=== PATIENT | female | born 1975 | race Two or more races ===

== ENCOUNTER 2019-08-06 23:29 | Emergency (ER) | payer SELFPAY ==
[~2019-08-06] VITALS: Ht 167.6 cm; Wt 68.0 kg
[2019-08-07 01:04] LABS: INFLUENZA A PATIENT NEGATIVE (NEGATIVE); INFLUENZA B PATIENT NEGATIVE (NEGATIVE)
[2019-08-07 04:26] VITALS: BP 121/69
[2019-08-07] MEDS ORDERED: AMOX875T PO (04:56)
--- NOTE | 2019-08-07 04:56 | PHYS DOC ---
Past Medical History Past Medical History: No Pertinent History Additional Past Medical Histor: Gestational diabetes Past Surgical History: Tubal ligation Alcohol Use: None Drug Use: None Adult General Chief Complaint Chief Complaint: SORE THROAT HPI HPI 44-year-old female presents to the emergency Department complaints of sore throat, fever, GI upset ongoing for the last 2-3 days. Patient is tried [id number] medications without significant improvement. Patient denies any nausea on exam. She is currently afebrile this time. Nothing makes her symptoms worse, nothing makes her symptoms better. Review of Systems Review of Systems Constitutional: fever HENT: sore throat Respiratory: Denies cough or shortness of breath [] Cardiovascular: No additional information not addressed in HPI [] GI: Denies abdominal pain, + nausea, no vomiting, bloody stools or diarrhea [] : Dysuria Musculoskeletal: Denies back pain or joint pain [] Neurologic: Denies headache, focal weakness or sensory changes [] All other systems were reviewed and found to be within normal limits, except as documented in this note. Allergies Allergies Allergies Coded Allergies Type Severity Reaction Last Updated Verified Fish Containing Products Allergy Intermediate Nausea and Vomiting 10/09/15 Yes ranitidine Adverse Reaction Intermediate 10/09/15 Yes Physical Exam Physical Exam Constitutional: Well developed, well nourished, no acute distress, non-toxic appearance. [] HENT: Normocephalic, atraumatic, bilateral external ears normal, oropharynx moist, + exudate appreciated, erythema to posterior pharynx, nose normal. [] Eyes: PERRLA, EOMI, conjunctiva normal, no discharge. [] Neck: Normal range of motion, TTP + lymphadenopathy present, supple, no stridor. [] Cardiovascular:Heart rate regular rhythm, no murmur [] Lungs & Thorax: Bilateral breath sounds clear to auscultation [] Abdomen: Bowel sounds normal, soft, no tenderness, no masses, no pulsatile masses. [] Skin: Warm, dry, no erythema, no rash. [] Back: No tenderness, no CVA tenderness. [] Extremities: No tenderness, no edema. [] Neurologic: Alert and oriented X 3, no focal deficits noted. [] Psychologic: Affect normal, judgement normal, mood normal. [] Current Patient Data Vital Signs Vital Signs Date Time Temp Pulse Resp B/P (MAP) Pulse Ox O2 Delivery O2 Flow Rate FiO2 08/07/19 04:26 98.8 77 18 121/69 (86) 97 Room Air 98.8 Lab Values Laboratory Tests Test 08/07/19 00:23 Influenza Type A Antigen Negative (NEGATIVE) Influenza Type B Antigen Negative (NEGATIVE) EKG EKG [] Radiology/Procedures Radiology/Procedures [] Course & Med Decision Making Course & Med Decision Making Pertinent Labs and Imaging studies reviewed. (See chart for details) []44-year-old female presents to the emergency Department complaints of sore throat, fever, GI upset ongoing for the last 2-3 days. Patient is tried [id number] medications without significant improvement. Patient denies any nausea on exam. She is currently afebrile this time. Nothing makes her symptoms worse, nothing makes her symptoms better. + strep, negative influenza Abx provided upon discharge for 10 days Symptomatic treatment Return precautions provided upon discharge Discussed findings with patient and family at bedside Dragon Disclaimer Dragon Disclaimer This electronic medical record was generated, in whole or in part, using a voice recognition dictation system. Departure Departure Impression: Primary Impression: Strep pharyngitis Disposition: 01 HOME, SELF-CARE Condition: STABLE Referrals: NADYA CARBONE MD (PCP) Patient Instructions: Strep Throat, [id number] Additional Instructions: Recommend follow up with PCP 3 - 5 days Return to the ER with worsening symptoms, intractable pain, fever, altered mental status Tylenol/Motrin as needed for pain Take antibiotics as prescribed Amoxicillin 875mg BID x 10 days Scripts Amoxicillin (AMOXICILLIN) 875 Mg Tablet 1 TAB PO BID, #20 TAB Prov: MARSHA SWEENEY MD 08/07/19 MARSHA SWEENEY MD Aug 07, 2019 04:56
== END 2019-08-07 05:20 | disposition home or self-care (01) ==
LOC: ER 23:29
DX: J02.0 Streptococcal pharyngitis (principal); B95.5 Unspecified streptococcus as the cause of diseases classified elsewhere; R11.0 Nausea; R50.9 Fever, unspecified; R30.0 Dysuria; Z98.51 Tubal ligation status; Z91.013 Allergy to seafood; Z88.8 Allergy status to other drugs, medicaments and biological substances
CPT/HCPCS: 87804; 87880; 99284

== ENCOUNTER 2019-10-14 18:33 | Emergency (ER) | payer OTHER ==
[~2019-10-14] VITALS: Ht 162.6 cm; Wt 68.2 kg
[~2019-10-14 18:33] MED LIST: AMOX875T PO
[2019-10-14 20:15] VITALS: BP 183/84
[2019-10-14 21:00] LABS: INFLUENZA A PATIENT NEGATIVE (NEGATIVE); INFLUENZA B PATIENT NEGATIVE (NEGATIVE)
--- NOTE | 2019-10-14 21:24 | PHYS DOC ---
Past Medical History Past Medical History: No Pertinent History Additional Past Medical Histor: Gestational diabetes Past Surgical History: Tubal ligation Smoking Status: Never Smoker Alcohol Use: None Drug Use: None Adult General Chief Complaint Chief Complaint: FLU SYMPTOM HPI HPI Patient is a 44 year old female who presents to the ED today complaining of sore throat cough and subjective fevers, symptoms began yesterday. Patient reports the son has similar symptoms. Patient is Georgian speaking, interpretation provided by family Review of Systems Review of Systems Constitutional: Reports subjective fevers Eyes: Denies change in visual acuity, redness, or eye pain [] HENT: Reports sore throat. Denies nasal congestion Respiratory: Reports cough, denies shortness of breath [] Cardiovascular: No additional information not addressed in HPI [] GI: Denies abdominal pain, nausea, vomiting, bloody stools or diarrhea [] : Denies dysuria or hematuria [] Musculoskeletal: Denies back pain or joint pain [] Integument: Denies rash or skin lesions [] Neurologic: Denies headache, focal weakness or sensory changes [] All other systems were reviewed and found to be within normal limits, except as documented in this note. Allergies Allergies Allergies Coded Allergies Type Severity Reaction Last Updated Verified Fish Containing Products Allergy Intermediate Nausea and Vomiting 10/09/15 Yes ranitidine Adverse Reaction Intermediate 10/09/15 Yes Physical Exam Physical Exam Constitutional: Well developed, well nourished, no acute distress, non-toxic appearance. [] HENT: Normocephalic, atraumatic, bilateral external ears normal, oropharynx moist, no oral exudates, nose normal. [] Eyes: PERRLA, EOMI, conjunctiva normal, no discharge. [] Neck: Normal range of motion, no tenderness, supple, no stridor. [] Cardiovascular:Heart rate regular rhythm, no murmur [] Lungs & Thorax: Bilateral breath sounds clear to auscultation [] Abdomen: Bowel sounds normal, soft, no tenderness, no masses, no pulsatile masses. [] Skin: Warm, dry, no erythema, no rash. [] Back: No tenderness, no CVA tenderness. [] Extremities: No tenderness, no cyanosis, no clubbing, ROM intact, no edema. [] Neurologic: Alert and oriented X 3, normal motor function, normal sensory fun ction, no focal deficits noted. [] Psychologic: Affect normal, judgement normal, mood normal. [] Current Patient Data Vital Signs Vital Signs Date Time Temp Pulse Resp B/P (MAP) Pulse Ox O2 Delivery O2 Flow Rate FiO2 10/14/19 20:15 98.5 75 18 183/84 (117) 97 Room Air 98.5 Lab Values Laboratory Tests Test 10/14/19 20:27 Influenza Type A Antigen Negative (NEGATIVE) Influenza Type B Antigen Negative (NEGATIVE) EKG EKG [] Radiology/Procedures Radiology/Procedures [] Course & Med Decision Making Course & Med Decision Making Pertinent Labs and Imaging studies reviewed. (See chart for details) This is a 44-year-old female patient presenting to the ED today with sore throat, fever subjective in nature, and a cough since yesterday. Negative rapid strep, negative influenza A/B, chest x-ray interpreted by Dr. Ramos is negative. Discharge to home. F/u with PCP next week. Dragon Disclaimer Dragon Disclaimer This electronic medical record was generated, in whole or in part, using a voice recognition dictation system. Departure Departure Impression: Primary Impression: Cough Additional Impressions: Fever Acute pharyngitis Disposition: HOME, SELF-CARE Condition: STABLE Referrals: NADYA CARBONE MD (PCP) follow up in 1-2 weeks Patient Instructions: Cough, Adult, Darn-tv-[id number], Fever, Adult, Viral and Bacterial Pharyngitis Additional Instructions: You were evaluated in the emergency room for fever cough and a sore throat. Your strep test is negative, your influenza test is negative, your chest x-ray is negative. Use the prescribed medications as ordered and follow-up with your own doctor in 1 to 2 weeks Scripts Prednisone (PREDNISONE) 50 Mg Tablet 1 TAB PO DAILY, #5 TAB Prov: BRAXTONUNGAFROILAN PLANER TAILER 10/14/19 Benzonatate (TESSALON PERLE) 100 Mg Capsule 1 CAP PO TID, #30 CAP Prov: MUTUNGA,FROILAN PLANER TAILER 10/14/19 Problem Qualifiers Additional Impressions: Fever Fever type: unspecified Qualified Codes: R50.9 - Fever, unspecified Acute pharyngitis Pharyngitis/tonsillitis etiology: unspecified etiology Qualified Codes: J02.9 - Acute pharyngitis, unspecified MUTUNGAFROILAN PLANER TAILER Oct 14, 2019 21:23
[2019-10-14] MEDS ORDERED: PRED50TA PO (22:09)
[2019-10-14] MEDS ORDERED: BENZ100C PO (22:09)
--- NOTE | 2019-10-14 23:36 | RAD ---
PA and lateral chest. HISTORY: Cough PA and lateral views were taken of the chest. Patient has not taken a deep inspiration. There are no confluent infiltrates. There is no pleural effusion. Heart is normal in size. IMPRESSION: 1. No acute chest disease. Electronically signed by: Robe Severino MD (10/14/2019 11:33 PM) [id number]
--- NOTE | 2019-10-19 16:30 | VNOTE ---
CALL BACK NOTE CALL BACK Microbiology 10/14/19 Nose/Throat Culture - Final, Complete 10/14/19 - Final, Complete 10/14/19 - Final, Complete Positive strep culture, spoke with patient through family member who was interpreting for [place] Sor[place], called in a prescription for amoxicillin to [facility] on and FROILAN Greenberg APRN Oct 19, 2019 16:30
== END 2019-10-14 22:15 | disposition home or self-care (01) ==
LOC: ER 18:33
DX: J02.9 Acute pharyngitis, unspecified (principal); R05 Cough; R50.9 Fever, unspecified; Z91.013 Allergy to seafood; Z88.8 Allergy status to other drugs, medicaments and biological substances
CPT/HCPCS: 71046; 87070; 87804; 87880; 99284

== ENCOUNTER 2020-01-31 18:32 | Emergency (ER) | payer OTHER ==
[~2020-01-31] VITALS: Ht 160 cm; Wt 81.8 kg
[~2020-01-31 18:32] MED LIST changes: +BENZ100C PO; +PRED50TA PO
[2020-01-31 18:52] LABS: BILIRUBIN,URINE NEGATIVE (NEG); CLARITY,URINE CLOUDY; COLOR,URINE YELLOW; NITRITE,URINE NEGATIVE (NEG); PH,URINE 5.5 (<5.0-8.0); PROTEIN,URINE NEGATIVE (NEG-TRACE); UROBILINOGEN,URINE 0.2 mg/dL (0.2 mg/dL)
[2020-01-31 18:57] LABS: BACTERIA,URINE FEW /HPF (0-FEW); RBC,URINE OCC /HPF (0-2); SQUAMOUS EPITHELIAL CELL,UR MANY /LPF
[2020-01-31 18:58] LABS: AMORPHOUS SEDIMENT,UR PRESENT /HPF
[2020-01-31 19:41] LABS: U PREG PATIENT NEGATIVE (NEG)
[2020-01-31 19:47] LABS: BARBITURATES NEG (NEG); BENZODIAZEPINES NEG (NEG); CANNABINOIDS NEG (NEG); COCAINE NEG (NEG); METHADONE NEG (NEG); OPIATES NEG (NEG); PHENCYCLIDINE NEG (NEG)
[2020-01-31 19:48] LABS: AMPHETAMINE/METHAMPHETAMINE NEG (NEG)
[2020-01-31 19:59] LABS: BASO % 1 % (0-3); EOS # 0.2 x10^3/uL (0.0-0.7); EOS % 3 % (0-3); HEMOGLOBIN 14.5 g/dL (12.0-15.5); LYMPH # 2.7 x10^3/uL (1.0-4.8); LYMPH % 39 % (24-48); MEAN CORPUSCULAR HEMOGLOBIN 29 pg (25-35); MEAN CORPUSCULAR HGB CONC 35 g/dL (31-37); MEAN CORPUSCULAR VOLUME 85 fL (79-100); MONO # 0.4 x10^3/uL (0.0-1.1); MONO % 5 % (0-9); NEUT # 3.7 x10^3/uL (1.8-7.7); NEUT % 53 % (31-73); PLATELET COUNT 229 x10^3/uL (140-400); RED BLOOD COUNT 4.91 x10^6/uL (3.50-5.40); RED CELL DISTRIBUTION WIDTH 13.7 % (11.5-14.5); WHITE BLOOD COUNT 7.1 x10^3/uL (4.0-11.0)
[2020-01-31 20:07] LABS: PROTHROMBIN TIME PATIENT 12.6 SEC (11.7-14.0)
[2020-01-31] MEDS ORDERED: FAMOTIDINE 20 MG/2 ML VIAL IVP ONE (20:15)
[2020-01-31] MEDS ORDERED: ONDANSETRON PF 4 MG/2 ML VIAL. IVP ONE (20:15)
[2020-01-31 20:18] LABS: CALCIUM 8.8 mg/dL (8.5-10.1); GFR 60.2; POTASSIUM 3.7 mmol/L (3.5-5.1)
[2020-01-31 20:26] LABS: TOTAL BILIRUBIN 0.2 mg/dL (0.2-1.0); TOTAL PROTEIN 7.9 g/dL (6.4-8.2)
[2020-01-31] MEDS ORDERED: IOHEXOL 300 MG/ML 100ML VIAL. IV ONE (20:30)
--- NOTE | 2020-01-31 20:41 | PHYS DOC ---
Past Medical History Past Medical History: No Pertinent History Additional Past Medical Histor: Gestational diabetes Past Surgical History: Tubal ligation Smoking Status: Never Smoker Alcohol Use: None Drug Use: None General Adult EDM: Chief Complaint: PAIN ON URINATION HPI: HPI: Patient is a 44 year old female who presents with multiple complaints. She states that she is get burning in her abdomen and having lower abdominal pain with burning with urination. She also says that she has pain with sex and with having a bowel movement. She states that when she is pushing to have a bowel movement she will have low abdominal pain. She states that she is also having vaginal discharge that is foul-smelling and states that her urine also has a foul smell. She states that she has burning with eating spicy foods in her abdomen. She states she had gastritis in the past. She also complains that she is not having periods any longer. When asked when her last period was she could not give an answer. When asked how long all the symptoms have been going on for she could not give me a answer. When I was speaking with the patient about her missed periods and pain with sex we talked about hormones and she stated at that time that this is been going on for a while. Patient again cannot tell me how long this is all been going on for. Patient is Sinhala speaking and clamp truck driver phone was used. Patient states that she has no sexually transmitted disease concerns and does not want to be treated today. She rates her low mid abdominal pain at a 5 out of 10 and nothing makes it worse or better. She denies any radiation of pain. Review of Systems: Review of Systems: Constitutional: Denies fever or chills. [] Eyes: Denies change in visual acuity. [] HENT: Denies nasal congestion or sore throat. [] Respiratory: Denies cough or shortness of breath. [] Cardiovascular: Denies chest pain or edema. [] GI: Denies abdominal pain, nausea, vomiting, bloody stools or diarrhea. [] : Denies dysuria. [] Musculoskeletal: Denies back pain or joint pain. [] Integument: Denies rash. [] Neurologic: Denies headache, focal weakness or sensory changes. [] Endocrine: Denies polyuria or polydipsia. [] Lymphatic: Denies swollen glands. [] Psychiatric: Denies depression or anxiety. [] Heart Score: Risk Factors: Risk Factors: DM, Current or recent (<one month) smoker, HTN, HLP, family history of CAD, obesity. Risk Scores: Score 0 - 3: 2.5% MACE over next 6 weeks - Discharge Home Score 4 - 6: 20.3% MACE over next 6 weeks - Admit for Clinical Observation Score 7 - 10: 72.7% MACE over next 6 weeks - Early Invasive Strategies Current Medications: Current Medications Medications (Trade) Dose Ordered Sig/Ebony Start Time Stop Time Status Last Admin Dose Admin Famotidine (Pepcid Vial) 20 mg 1X ONCE 01/31/20 20:15 01/31/20 20:16 DC 01/31/20 20:15 20 MG Iohexol (Omnipaque 300 Mg/ml) 75 ml 1X ONCE 01/31/20 20:30 01/31/20 20:31 UNV Ondansetron HCl (Zofran) 4 mg 1X ONCE 01/31/20 20:15 01/31/20 20:16 DC 01/31/20 20:15 4 MG Allergies: Allergies: Allergies Coded Allergies Type Severity Reaction Last Updated Verified Fish Containing Products Allergy Intermediate Nausea and Vomiting 10/09/15 Yes ranitidine Adverse Reaction Intermediate 10/09/15 Yes Physical Exam: PE: Constitutional: Well developed, well nourished, no acute distress, non-toxic appearance. [] HENT: Normocephalic, atraumatic, bilateral external ears normal, oropharynx moist, no oral exudates, nose normal. [] Eyes: PERRLA, EOMI, conjunctiva normal, no discharge. [] Neck: Normal range of motion, no tenderness, supple, no stridor. [] Cardiovascular:Heart rate regular rhythm, no murmur [] Lungs & Thorax: Bilateral breath sounds clear to auscultation [] Abdomen: Bowel sounds normal, soft, no tenderness, no masses, no pulsatile masses. [] Skin: Warm, dry, no erythema, no rash. [] Back: No tenderness, no CVA tenderness. [] Extremities: No tenderness, no cyanosis, no clubbing, ROM intact, no edema. [] Neurologic: Alert and oriented X 3, normal motor function, normal sensory function, no focal deficits noted. [] Psychologic: Affect normal, judgement normal, mood normal. [] Current Patient Data: Labs: Laboratory Tests Test 01/31/20 18:45 01/31/20 19:50 Urine Collection Type Unknown Urine Color Yellow Urine Clarity Cloudy Urine pH 5.5 (<5.0-8.0) Urine Specific [place] >=1.030 (1.000-1.030) Urine Protein Negative mg/dL (NEG-TRACE) Urine Glucose (UA) Negative mg/dL (NEG) Urine Ketones (Stick) Negative mg/dL (NEG) Urine Blood Negative (NEG) Urine Nitrite Negative (NEG) Urine Bilirubin Negative (NEG) Urine Urobilinogen Dipstick 0.2 mg/dL (0.2 mg/dL) Urine Leukocyte Esterase Negative (NEG) Urine RBC Occ /HPF (0-2) Urine WBC 1-4 /HPF (0-4) Urine Squamous Epithelial Cells Many /LPF Urine Amorphous Sediment Present /HPF Urine Bacteria Few /HPF (0-FEW) Urine Mucus Marked /LPF Urine Test Negative (NEG) Urine Opiates Screen Neg (NEG) Urine Methadone Screen Neg (NEG) Urine Barbiturates Neg (NEG) Urine Phencyclidine Screen Neg (NEG) Urine Amphetamine/Methamphetamine Neg (NEG) Urine Benzodiazepines Screen Neg (NEG) Urine Cocaine Screen Neg (NEG) Urine Cannabinoids Screen Neg (NEG) Urine Ethyl Alcohol Neg (NEG) White Blood Count 7.1 x10^3/uL (4.0-11.0) Red Blood Count 4.91 x10^6/uL (3.50-5.40) Hemoglobin 14.5 g/dL (12.0-15.5) Hematocrit 42.0 % (36.0-47.0) Mean Corpuscular Volume 85 fL (79-100) Mean Corpuscular Hemoglobin 29 pg (25-35) Mean Corpuscular Hemoglobin Concent 35 g/dL (31-37) Red Cell Distribution Width 13.7 % (11.5-14.5) Platelet Count 229 x10^3/uL (140-400) Neutrophils (%) (Auto) 53 % (31-73) Lymphocytes (%) (Auto) 39 % (24-48) Monocytes (%) (Auto) 5 % (0-9) Eosinophils (%) (Auto) 3 % (0-3) Basophils (%) (Auto) 1 % (0-3) Neutrophils # (Auto) 3.7 x10^3/uL (1.8-7.7) Lymphocytes # (Auto) 2.7 x10^3/uL (1.0-4.8) Monocytes # (Auto) 0.4 x10^3/uL (0.0-1.1) Eosinophils # (Auto) 0.2 x10^3/uL (0.0-0.7) Basophils # (Auto) 0.0 x10^3/uL (0.0-0.2) Prothrombin Time 12.6 SEC (11.7-14.0) Prothrombin Time INR 1.0 (0.8-1.1) Sodium Level 143 mmol/L (136-145) Potassium Level 3.7 mmol/L (3.5-5.1) Chloride Level 105 mmol/L (98-107) Carbon Dioxide Level 28 mmol/L (21-32) Anion Gap 10 (6-14) Blood Urea Nitrogen 12 mg/dL (7-20) Creatinine 1.0 mg/dL (0.6-1.0) Estimated GFR (Cockcroft-Gault) 60.2 BUN/Creatinine Ratio 12 (6-20) Glucose Level 208 mg/dL (70-99) H Calcium Level 8.8 mg/dL (8.5-10.1) Total Bilirubin 0.2 mg/dL (0.2-1.0) Aspartate Amino Transferase (AST) 25 U/L (15-37) Alanine Aminotransferase (ALT) 39 U/L (14-59) Alkaline Phosphatase 113 U/L (46-116) Total Protein 7.9 g/dL (6.4-8.2) Albumin 4.0 g/dL (3.4-5.0) Albumin/Globulin Ratio 1.0 (1.0-1.7) Lipase 116 U/L (73-393) Laboratory Tests 01/31/20 19:50 Laboratory Tests 01/31/20 19:50 Microbiology 01/31/20 Wet Prep - Final, Complete EKG: EKG: [] Radiology/Procedures: Radiology/Procedures: [] Impression: [facility] [address] [place], [place] [id number] IMAGING REPORT Signed PATIENT: WADE GLOVER ACCOUNT: [id number] : 1975 LOCATION: ER AGE: 44 SEX: F EXAM STATUS: REG ER ORD. PHYSICIAN: MALIK REES APRN REASON: abd pain, n/v/d/fever, cough OMNI 300, 75 ML IV PROCEDURE: CT ABD PELV W/ IV CONTRST ONLY Exam: CT of abdomen and pelvis with contrast INDICATION: Abdominal pain, nausea vomiting diarrhea fever TECHNIQUE: Sequential axial images through the abdomen and pelvis obtained following the administration of 75 mL of Omni 300 IV contrast. Sagittal and coronal reformatted images were reconstructed from the axial data and reviewed. Comparisons: None FINDINGS: Heart size is normal. No pericardial effusion. Visualized lung bases are clear. No pleural effusion. Liver, spleen, gallbladder and adrenals are unremarkable. Question mild haziness around the pancreatic head. Kidneys demonstrate symmetric enhancement. No perinephric inflammation or hydronephrosis. No renal or ureteral calculi are identified. Bladder is distended and appears thin-walled. Uterus is not enlarged. No abnormal adnexal mass. Large and small bowel are unremarkable. Appendix is not identified. No free intra-abdominal air or fluid. No obstruction. Abdominal aorta has a normal course and caliber. Abdominal vasculature is patent. No enlarged intra-abdominal lymph nodes are identified. No suspicious osseous lesions or acute fractures. IMPRESSION: 1. Evaluation is limited secondary to patient's respiratory motion. There may be mild haziness surrounding the pancreas. Correlate with lipase. 2. Otherwise, no acute process identified in the abdomen or pelvis. Exposure: One or more of the following in the visualized dose reduction techniques were utilized for this examination: 1. Automated exposure control 2. Adjustment of the MA and/or KV according to patient size 3. Use of iterative of reconstructive technique Electronically signed by: Ernie Lee MD (01/31/2020 9:09 PM) [id number] DICTATED and SIGNED BY: ERNIE LEE MD DATE: 01/31/202108 [facility] [address] [place], [place] [phone] IMAGING REPORT Signed PATIENT: WADE GLOVER ACCOUNT: [id number] : 1975 LOCATION: ER AGE: 44 SEX: F EXAM STATUS: REG ER ORD. PHYSICIAN: MALIK REES APRN REASON: pelvic pain, vaginal discharge, painful intercourse. PROCEDURE: TRANSVAGINAL Exam: Ultrasound pelvis Indication: Pelvic pain, vaginal discharge Technique: Real-time grayscale and color Doppler images of the pelvis were obtained by the department cutter plastics rolls. Comparisons: None FINDINGS: Uterus measures 7.5 x 4.4 x 3.2 cm. Endometrium is 11 mm in thickness. Right ovary measures 1.8 x 1.3 x 1.2 cm. Left ovary measures 2.6 x 1.4 x 1.3 cm. Vascular flow identified within the ovaries bilaterally. IMPRESSION: Endometrium measures approximately 12 mm in thickness which would be enlarged for a postmenopausal female. Correlate with menopausal status. In a postmenopausal female this could be related to endometrial hyperplasia, polyp or less likely carcinoma. Recommend visualization would be recommended. In a premenopausal female this would be within the limits of normal. Electronically signed by: Ernie Lee MD (01/31/2020 11:02 PM) [id number] DICTATED and SIGNED BY: ERNIE LEE MD DATE: 01/31/202301 Course & Med Decision Making: Course & Med Decision Making Pertinent Labs and Imaging studies reviewed. (See chart for details) Alert and oriented. Speaks in full clear sentences. Ambulatory with a steady gait. Skin pink warm and dry. Vital signs within normal limits. Afebrile. Abdomen is soft and nontender. Patient states that she does not have any sexually transmitted disease concerns but she has symptoms of pelvic inflammatory disease. These include dyspareunia, vaginal discharge, and pain in pelvis with bearing down during bowel movements. I will go ahead and give her Rocephin IM and doxycycline through her IV. She does not have a white count or a fever and no tenderness when I push on her abdomen. CT abdomen pelvis show no acute findings. Urinalysis is negative. I have ordered a pelvic ultrasound. Pelvic Exam: Solid State Tester present Abdomen: Nontender External Genitalia: Normal Skin Speculum: Normal vaginal mucosa, white cervical discharge Bimanual: No adnexal masses or tenderness, Yes CMT Patient educated on findings and that she needs to follow up with a telecommunications field technician as soon as possible. [] Ramesh Disclaimer: Ramesh Disclaimer: This electronic medical record was generated, in whole or in part, using a voice recognition dictation system. Departure Departure Impression: Primary Impression: GERD (gastroesophageal reflux disease) Qualified Codes: K21.9 - Gastro-esophageal reflux disease without esophagitis Additional Impression: Dyspareunia Disposition: HOME, SELF-CARE Condition: STABLE Referrals: NADYA CARBONE MD (PCP) FREDERICK CLAIRE Jr, MD, SCOTT S MD Patient Instructions: Diet for Gastroesophageal Reflux Disease, Adult, Dyspareunia, Gastroesophageal Reflux Disease, Adult Additional Instructions: Follow-up with primary care physician. Follow-up with telecommunications field technician as soon as possible. Follow-up with test examiner. Drink plenty of fluids. Scripts Omeprazole Magnesium (PRILOSEC OTC) 20 Mg Tablet.dr 1 TAB PO DAILY for 30 Days, #30 TAB 0 Refills Prov: MALIK REES APRN 01/31/20 Doxycycline Hyclate (DOXYCYCLINE HYCLATE) 100 Mg Capsule 1 CAP PO BID, #20 CAP Prov: MALIK REES APRN 01/31/20 Justicifation of Admission Dx: Justifications for Admission: Justification of Admission Dx: N/A MALIK REES APRN Jan 31, 2020 20:40
--- NOTE | 2020-01-31 21:12 | RAD ---
Exam: CT of abdomen and pelvis with contrast INDICATION: Abdominal pain, nausea vomiting diarrhea fever TECHNIQUE: Sequential axial images through the abdomen and pelvis obtained following the administration of 75 mL of Omni 300 IV contrast. Sagittal and coronal reformatted images were reconstructed from the axial data and reviewed. Comparisons: None FINDINGS: Heart size is normal. No pericardial effusion. Visualized lung bases are clear. No pleural effusion. Liver, spleen, gallbladder and adrenals are unremarkable. Question mild haziness around the pancreatic head. Kidneys demonstrate symmetric enhancement. No perinephric inflammation or hydronephrosis. No renal or ureteral calculi are identified. Bladder is distended and appears thin-walled. Uterus is not enlarged. No abnormal adnexal mass. Large and small bowel are unremarkable. Appendix is not identified. No free intra-abdominal air or fluid. No obstruction. Abdominal aorta has a normal course and caliber. Abdominal vasculature is patent. No enlarged intra-abdominal lymph nodes are identified. No suspicious osseous lesions or acute fractures. IMPRESSION: 1. Evaluation is limited secondary to patient's respiratory motion. There may be mild haziness surrounding the pancreas. Correlate with lipase. 2. Otherwise, no acute process identified in the abdomen or pelvis. Exposure: One or more of the following in the visualized dose reduction techniques were utilized for this examination: 1. Automated exposure control 2. Adjustment of the MA and/or KV according to patient size 3. Use of iterative of reconstructive technique Electronically signed by: Ernie Garber MD (01/31/2020 9:09 PM) [id number]
[2020-01-31] MEDS ORDERED: DOXYCYCLINE HYCLATE 100 MG in IV DEXTROSE 5% 100ML 100 ML IV ONE (21:30)
[2020-01-31] MEDS ORDERED: cefTRIAXone IM 250 MG VIAL IM ONE (21:30)
[2020-01-31] MEDS ORDERED: IV NORMAL SALINE 1000ML BAG 1,000 ML IV ONE (21:30)
[2020-01-31] MEDS ORDERED: DOXY100C2 PO (23:05)
[2020-01-31] MEDS ORDERED: OMEP20TA63 PO (23:05)
--- NOTE | 2020-01-31 23:05 | RAD ---
Exam: Ultrasound pelvis Indication: Pelvic pain, vaginal discharge Technique: Real-time grayscale and color Doppler images of the pelvis were obtained by the department ld teacher. Comparisons: None FINDINGS: Uterus measures 7.5 x 4.4 x 3.2 cm. Endometrium is 11 mm in thickness. Right ovary measures 1.8 x 1.3 x 1.2 cm. Left ovary measures 2.6 x 1.4 x 1.3 cm. Vascular flow identified within the ovaries bilaterally. IMPRESSION: Endometrium measures approximately 12 mm in thickness which would be enlarged for a postmenopausal female. Correlate with menopausal status. In a postmenopausal female this could be related to endometrial hyperplasia, polyp or less likely carcinoma. Recommend visualization would be recommended. In a premenopausal female this would be within the limits of normal. Electronically signed by: Ernie Garber MD (01/31/2020 11:02 PM) [id number]
[2020-01-31 23:50] VITALS: BP 139/68
[2020-02-02 18:09] LABS: GC PROBE Negative (Negative)
== END 2020-01-31 23:57 | disposition home or self-care (01) ==
LOC: ER 18:32
DX: K21.9 Gastro-esophageal reflux disease without esophagitis (principal); N94.10 Unspecified dyspareunia; Z98.51 Tubal ligation status; Z91.013 Allergy to seafood; Z88.8 Allergy status to other drugs, medicaments and biological substances
CPT/HCPCS: 74177; 76830; 80053; 80307; 81001; 81025; 83690; 85025; 85610; 87491; 87591; 96365; 96366; 96372; 96375; 99285; J0696; J2405; J3490; J7030; J7060; Q0111; Q9967; 36415